=== PATIENT | female | born 1980 | race Caucasian/White ===

== ENCOUNTER 2020-05-10 00:54 | Emergency (ER) | payer MEDICAID ==
[~2020-05-10] VITALS: Ht 157.5 cm; Wt 75.0 kg
[2020-05-10 02:57] LABS: CLARITY URINE CLOUDY (CLEAR); COLOR URINE YELLOW (YELLOW); KETONES URINE TRACE (NEGATIVE); LEUKOCYTE ESTERASE URINE TRACE (NEGATIVE); NITRITE URINE NEGATIVE (NEGATIVE); OCCULT BLOOD URINE 2+ (NEGATIVE); PH URINE 5.5 (4.5-8.0); PROTEIN URINE TRACE (NEGATIVE); SPECIFIC GRAVITY URINE 1.025 (1.005-1.030)
[2020-05-10] MEDS ORDERED: FAMOTIDINE 20MG TABLET PO ONE (03:15)
[2020-05-10] MEDS ORDERED: ONDANSETRON 4MG ODT PO ONE (03:15)
[2020-05-10] MEDS ORDERED: CEFTRIAXONE SODIUM 500 MG/VIAL IM ONE (03:15)
[2020-05-10] MEDS ORDERED: ACETAMINOPHEN 325MG TABLET PO STA (03:15)
[2020-05-10 04:14] VITALS: BP 165/80
== END 2020-05-10 04:16 | disposition home or self-care (01) ==
LOC: ER 00:54
DX: R31.9 Hematuria, unspecified (principal); Z86.19 Personal history of other infectious and parasitic diseases
CPT/HCPCS: 81003; 81025; 96372; 99284; J0696; Q0162